=== PATIENT | male | born 1950 | race Caucasian/White ===

== ENCOUNTER 2018-08-24 21:18 | Emergency (ER) | payer MEDICARE, BC ==
[2018-08-24] MEDS ORDERED: Diphtheria,Pertussis(Acell),Tetanus Vaccine 0.5 ML SDV IM ONE (23:09)
[2018-08-24] MEDS ORDERED: cefTRIAXone 1 GM Vial IM ONE (23:09)
--- NOTE | 2018-08-24 23:41 | EDM.PDOC ---
ED HPI GENERAL MEDICAL PROBLEM - General Chief Complaint: Skin Complaint Stated Complaint: MALIK BITES Time Seen by Provider: 08/24/18 22:30 Source of Information: Reports: Patient History Limitations: Reports: No Limitations - History of Present Illness INITIAL COMMENTS - FREE TEXT/NARRATIVE: yesterday [place] in [place] and ended up with several beaches on his legs. counted somewhere around 30 bites or more. Today he noticed this evening when he got home he was feeling a little warm so he took his temperature and it was 101.5. He does not otherwise feel lightheaded, dizzy, or unwell. He has some pain in the area of his lower leg, but is able to move all of his joints without difficulty. No other symptoms at this time. He does not have diabetes. He is not on any immunosuppressant medications. He is extremely busy right now as they have a mud bog coming up next week and is spending a lot of time on the tractor. - Related Data Allergies Allergy/AdvReac Type Severity Reaction Status Date / Time Bee sting Allergy Swelling Uncoded 08/24/18 23:20 Home Meds: Home Meds Aspirin 81 mg PO DAILY 01/24/16 [History] Metoprolol Succinate [Toprol XL] 50 mg PO DAILY 01/24/16 [History] Nitroglycerin [IJP: Nitroglycerin] 0.4 mg BUCCAL ASDIRECTED 01/24/16 [History] atorvaSTATin [Lipitor] 80 mg PO DAILY 01/24/16 [History] Lisinopril/Hydrochlorothiazide [Lisinopril-Hctz 10-12.5 mg Tab] 1 tab PO DAILY 08/24/18 [History] Tamsulosin HCl 0.4 mg PO DAILY 08/24/18 [History] Past Medical History Cardiovascular History: Reports: High Cholesterol, Hypertension, Stents Musculoskeletal History: Reports: Other (See Below) Other Musculoskeletal History: old rib Fx - Infectious Disease History Infectious Disease History: Reports: Chicken Pox - Past Surgical History Cardiovascular Surgical History: Reports: Other (See Below) Social & Family History - Family History Family Medical History: Unobtainable - Tobacco Use Smoking Status *Q: Never Smoker - Caffeine Use Caffeine Use: Reports: None - Alcohol Use Alcohol Use History: No - Living Situation & Occupation Living situation: Reports: Occupation: Employed Social History Comment: 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 ED EXAM, GENERAL - Physical Exam Exam: See Below Free Text/Narrative:: general: Alert, very pleasant in no acute distress. Lungs clear, heart regular. His right lower leg appears slightly swollen around the ankle, and there are multiple red bites present with extension of the erythema between some of them. There is no obvious fluctuance or area of abscess. He is able to flex and extend his ankle and walk on it without any difficulty. There is no swelling around his knee. He does not have any obvious red streaking up the leg. Course - Vital Signs Text/Narrative:: given fever earlier this afternoon, will check labs. Suspect cellulitis underlying some of the bites, no other focal symptoms. No signs of any joint infection at this time and patient does not appear toxic. Uncertain when last tetanus was, so we will also update that today. Last Recorded V/S: Last Vital Signs Temp 36.9 C 08/24/18 22:07 Pulse 89 08/24/18 22:07 Resp 18 08/24/18 22:07 BP 105/68 08/24/18 22:07 Pulse Ox 94 L 08/24/18 22:07 - Orders/Labs/Meds Orders: Active Orders 24 hr Category Date Time Status Vaccines to be Administered [RC] PER UNIT ROUTINE Care 08/24/18 23:09 Active Labs: Laboratory Tests 08/24/18 08/24/18 Range/Units 23:25 23:25 WBC 7.8 (4.5-12.0) X10-3/uL RBC 4.48 (4.30-5.75) x10(6)uL Hgb 14.0 (13.5-17.8) g/dL Hct 41.9 (30.0-51.3) % MCV 93.5 (80-96) fL MCH 31.3 (27.7-33.6) pg MCHC 33.5 (32.2-35.4) g/dL RDW 15.1 (11.5-15.5) % Plt Count 193 (125-369) X10(3)uL MPV 7.8 (7.4-10.4) fL Neut % (Auto) 70.3 (46-82) % Lymph % (Auto) 15.7 (13-37) % K[place]haw % (Auto) 9.4 (4-12) % Eos % (Auto) 4 (1.0-5.0) % Baso % (Auto) 0 (0-2) % Neut # (Auto) 5.6 (1.6-8.3) # Lymph # (Auto) 1.2 (0.6-5.0) # [place]haw # (Auto) 0.7 (0.0-1.3) # Eos # (Auto) 0.3 (0.0-0.8) # Baso # (Auto) 0.0 (0.0-0.2) # C-Reactive Protein 0.6 (0.5-0.9) mg/dL Meds: Medications Discontinued Medications Generic Name Dose Route Start Last Admin Trade Name Anthony PRN Reason Stop Dose Admin Ceftriaxone Sodium 1 gm 08/24/18 23:09 08/24/18 23:37 Rocephin IM 08/24/18 23:10 1 gm ONETIME ONE Administration Diphtheria/Tetanus/Acell Pertussis 0.5 ml 08/24/18 23:09 08/24/18 23:38 Adacel IM 08/24/18 23:10 0.5 ml .ONCE ONE Administration - Re-Assessments/Exams Free Text/Narrative Re-Assessment/Exam: labs within normal limits. Swelling is significantly better after the patient has had leg elevated for a while. Given 1 g of Rocephin here and tetanus updated. Will have him start Augmentin tomorrow evening for a 7 day course and discussed signs or symptoms which are probably need for more immediate follow- up. Strongly encouraged him to take some time during the day to elevate his leg to help with the swelling as well and to keep his wounds covered. Discussed signs or symptoms of more severe infection and when to return to care. They are in agreement with this plan and had no further questions Departure - Departure Time of Disposition: 23:41 Disposition: Home, Self-Care 01 Condition: Good Clinical Impression: Bites, Cellulitis - Discharge Information *PRESCRIPTION DRUG MONITORING PROGRAM REVIEWED*: Not Applicable *COPY OF PRESCRIPTION DRUG MONITORING REPORT IN PATIENT NAHUM: Not Applicable Instructions: Cellulitis, Adult Referrals: Blake Irvin MD [Primary Care Provider] - Forms: ED Department Discharge Additional Instructions: if you develop swelling of the ankle which makes it difficult to move your ankle or unable to put weight on it, need to be seen immediately in the emergency room if you develop a fever (100.7F) accompanied by feeling lightheaded or dizzy, weak all over, feeling extremely unwell or it does not respond to Tylenol and ibuprofen should also be immediately reevaluated (concern for sepsis) A shot of Rocephin was given tonight which will last for 24 hours. A prescription for antibiotics was given which you should fill and start tomorrow. If it is significantly improved by Monday or Monday and you have had no further fever, finish the antibiotic prescription. If you have a fever on Monday, you should be reevaluated by a physician but not emergency unless above mentioned symptoms tetanus updated tonight would benefit greatly from elevating your leg or using some kind of compression stockings to help the swelling go down. you should also be very careful to keep it clean as long as you have any open wounds present - My Orders Last 24 Hours: My Active Orders 08/24/18 23:09 Vaccines to be Administered [RC] PER UNIT ROUTINE - Assessment/Plan Last 24 Hours: My Active Orders 08/24/18 23:09 Vaccines to be Administered [RC] PER UNIT ROUTINE
[2018-08-25 00:24] VITALS: BP 105/68; PULSE 89
== END 2018-08-24 23:58 | disposition home or self-care (01) ==
LOC: FB.ED 21:18
DX: S80.861A Insect bite (nonvenomous), right lower leg, initial encounter (principal); L03.115 Cellulitis of right lower limb; E78.00 Pure hypercholesterolemia, unspecified; I10 Essential (primary) hypertension; Z91.030 Bee allergy status; Z79.82 Long term (current) use of aspirin; Z79.899 Other long term (current) drug therapy; Z23 Encounter for immunization; W57.XXXA Bitten or stung by nonvenomous insect and other nonvenomous arthropods, initial encounter
CPT/HCPCS: 36415; 85025; 86140; 90471; 90715; 96372; 99283; J0696